=== PATIENT | male | born 1955 | race Caucasian/White ===

== ENCOUNTER → 2023-11-01 08:18 | Outpatient (REF) | payer MEDICARE, BC, SELFPAY | LOC: RAD 08:18 | PROVIDERS: ATTENDING PHYSICIAN Internal Medicine Gastroenterology; FAMILY PHYSICIAN Family Medicine | DX: R13.10 Dysphagia, unspecified (principal) | CPT/HCPCS: 74221 ==

== ENCOUNTER → 2023-12-06 14:38 | Outpatient (REF) | payer MEDICARE, BC, SELFPAY | LOC: HWRCS 14:38 | PROVIDERS: ATTENDING PHYSICIAN Internal Medicine Cardiovascular Disease; FAMILY PHYSICIAN Family Medicine | DX: I25.10 Atherosclerotic heart disease of native coronary artery without angina pectoris (principal) | CPT/HCPCS: 93306 ==